=== PATIENT | male | born 1995 | race Caucasian/White ===

== ENCOUNTER → 2017-02-01 | Outpatient (CLI) | payer OTHER ==
[~2017-02-01] MED LIST: CLINDAMYCIN HC300 MG PO; CLINDAMYCIN300 MG PO; HYDROCODONE BIT1 T11 PO; MOTRIN800 MG PO; PEN-VEE K500 MG PO; PERCOCET 325 MG1 TA2 PO
== END | disposition home or self-care (01) ==
LOC: RAD 16:40
DX: R76.11 Nonspecific reaction to tuberculin skin test without active tuberculosis (principal); I10 Essential (primary) hypertension; R61 Generalized hyperhidrosis; R63.4 Abnormal weight loss; F17.200 Nicotine dependence, unspecified, uncomplicated

== ENCOUNTER 2019-02-09 13:24 | Emergency (ER) | payer OTHER ==
[~2019-02-09] VITALS: Wt 108.9 kg
[2019-02-09 14:10] LABS: BILIRUBIN NEGATIVE (NEGATIVE); BLOOD 1+ (NEGATIVE); CLARITY CLEAR (CLEAR); COLOR YELLOW (YELLOW); GLUCOSE NEGATIVE (NEGATIVE); KETONE NEGATIVE (NEGATIVE); LEUKO ESTERASE NEGATIVE (NEGATIVE); NITRITE NEGATIVE (NEGATIVE); PH 8.5 (5.0-9.0); SPECIFIC GRAVITY 1.015 (1.005-1.030); UROBILINOGEN 0.2 E.U./dl (0.2-1.0)
[2019-02-09 14:21] LABS: BACTERIA 2+
[2019-02-09 14:21] LABS: BASO % 0.8 % (0.0-1.0); EOS # 0.1 10*3/uL (0.0-0.4); HEMATOCRIT 44.7 % (42.0-52.0); HEMOGLOBIN 14.7 g/dl (14.0-18.0); LYMPH # 1.1 10*3/uL (1.3-4.4); LYMPH % 21.5 % (27.0-41.0); MEAN CELL VOLUME 85.5 fl (80.0-94.0); MEAN CORPUSCULAR HGB 28.1 pg (27.0-31.0); MEAN CORPUSCULAR HGB CONC 32.9 g/dl (33.0-37.0); MEAN PLATELET VOLUME 9.9 fl (9.6-12.3); MONO # 0.4 10*3/uL (0.1-1.0); MONO % 7.8 % (3.0-9.0); NEUT # 3.6 10*3/uL (2.3-7.9); NEUT % 68.5 % (47.0-73.0); PLATELET COUNT AUTOMATED 266 10*3/uL (130-400); RED BLOOD COUNT 5.23 10*6/uL (4.50-5.90); RED CELL DISTRI WIDTH 12.4 % (0-14.5); WHITE BLOOD COUNT 5.3 10*3/uL (4.8-10.8)
[2019-02-09 14:37] LABS: ALBUMIN 3.7 gm/dl (3.1-4.5); ALKALINE PHOSPHATASE 43 U/L (45-117); BUN 10 mg/dl (7-24); CHLORIDE 109 mmol/L (98-107); CREATININE 0.75 mg/dL (0.70-1.30); LIPASE 178 U/L (73-393); POTASSIUM 3.9 mmol/L (3.5-5.1); SGOT/AST 4 IU/L (3-35); SGPT/ALT 27 U/L (12-78); SODIUM 140 mmol/L (136-145); TOTAL PROTEIN 6.5 gm/dL (6.4-8.2)
[2019-02-09] MEDS ORDERED: FLOMAX0.4 MG PO (16:01)
[2019-02-09] MEDS ORDERED: SEPTDS PO (16:01)
[2019-02-09] MEDS ORDERED: IBUPROFEN600 MG PO (16:01)
== END 2019-02-09 16:25 | disposition home or self-care (01) ==
LOC: ED 13:24
PROVIDERS: Physician Assistant
DX: N23 Unspecified renal colic (principal)

== ENCOUNTER 2019-10-03 12:34 | Emergency (ER) | payer SELFPAY ==
[~2019-10-03] VITALS: Ht 182.8 cm; Wt 104.3 kg
[~2019-10-03 12:34] MED LIST changes: +FLOMAX0.4 MG PO; +IBUPROFEN600 MG PO; +SEPTDS PO
[2019-10-03 13:06] LABS: BASO # 0.1 10*3/uL (0.0-0.1); BASO % 1.2 % (0.0-1.0); EOS # 0.1 10*3/uL (0.0-0.4); EOS % 2.4 % (1.0-4.0); HEMATOCRIT 47.1 % (42.0-52.0); LYMPH # 1.8 10*3/uL (1.3-4.4); LYMPH % 30.7 % (27.0-41.0); MEAN CELL VOLUME 84.9 fl (80.0-94.0); MEAN CORPUSCULAR HGB 28.1 pg (27.0-31.0); MEAN CORPUSCULAR HGB CONC 33.1 g/dl (33.0-37.0); MEAN PLATELET VOLUME 9.7 fl (9.6-12.3); MONO # 0.6 10*3/uL (0.1-1.0); NEUT # 3.2 10*3/uL (2.3-7.9); NEUT % 55.5 % (47.0-73.0); PLATELET COUNT AUTOMATED 291 10*3/uL (130-400); RED BLOOD COUNT 5.55 10*6/uL (4.50-5.90); RED CELL DISTRI WIDTH 12.7 % (0-14.5); WHITE BLOOD COUNT 5.8 10*3/uL (4.8-10.8)
[2019-10-03 13:20] LABS: ALBUMIN 4.2 gm/dl (3.1-4.5); ALKALINE PHOSPHATASE 59 U/L (45-117); BUN 13 mg/dl (7-24); CHLORIDE 108 mmol/L (98-107); CREATININE 0.76 mg/dL (0.70-1.30); POTASSIUM 3.8 mmol/L (3.5-5.1); SGOT/AST 13 IU/L (3-35); SGPT/ALT 44 U/L (12-78); SODIUM 137 mmol/L (136-145); TOTAL PROTEIN 7.7 gm/dL (6.4-8.2)
[2019-10-03 16:19] LABS: BACTERIA 1+; BILIRUBIN NEGATIVE (NEGATIVE); BLOOD 1+ (NEGATIVE); CLARITY CLEAR (CLEAR); COLOR YELLOW (YELLOW); GLUCOSE NEGATIVE (NEGATIVE); KETONE NEGATIVE (NEGATIVE); LEUKO ESTERASE NEGATIVE (NEGATIVE); MUCOUS 2+; NITRITE NEGATIVE (NEGATIVE); RBC 16-20 rbc/hpf (0-2); UROBILINOGEN 0.2 E.U./dl (0.2-1.0)
[2019-10-03] MEDS ORDERED: NAPROSYN500 MG PO (17:04)
[2019-10-03] MEDS ORDERED: ZOFRAN4 MG PO (17:04)
[2019-10-03] MEDS ORDERED: NORCO 5-325 TA1 EACH PO (17:04)
[2019-10-03] MEDS ORDERED: FLOMAX0.4 MG PO (17:04)
== END 2019-10-03 16:48 | disposition home or self-care (01) ==
LOC: ED 12:34
PROVIDERS: Nurse Practitioner Family
DX: N20.1 Calculus of ureter (principal); F17.200 Nicotine dependence, unspecified, uncomplicated

== ENCOUNTER 2022-01-13 21:09 | Emergency (ER) | payer SELFPAY ==
[~2022-01-13] VITALS: Wt 127.0 kg
[~2022-01-13 21:09] MED LIST changes: +NAPROSYN500 MG PO; +NORCO 5-325 TA1 EACH PO; +ZOFRAN4 MG PO
[2022-01-13 21:28] LABS: BASO # 0.1 10*3/uL (0.0-0.1); BASO % 1.1 % (0.0-1.0); EOS # 0.3 10*3/uL (0.0-0.4); LYMPH # 2.2 10*3/uL (1.3-4.4); LYMPH % 34.8 % (27.0-41.0); MEAN CORPUSCULAR HGB 27.4 pg (27.0-31.0); MEAN CORPUSCULAR HGB CONC 33.8 g/dl (33.0-37.0); MEAN PLATELET VOLUME 9.6 fl (9.6-12.3); MONO # 0.7 10*3/uL (0.1-1.0); MONO % 11.3 % (3.0-9.0); NEUT % 48.3 % (47.0-73.0); PLATELET COUNT AUTOMATED 283 10*3/uL (130-400); RED CELL DISTRI WIDTH 12.5 % (0-14.5); WHITE BLOOD COUNT 6.3 10*3/uL (4.8-10.8)
[2022-01-13 21:45] LABS: ALKALINE PHOSPHATASE 68 U/L (45-117); BUN 12 mg/dl (7-24); CHLORIDE 109 mmol/L (98-107); CREATININE 0.92 mg/dL (0.70-1.30); LIPASE 1584 U/L (73-393); POTASSIUM 4.2 mmol/L (3.5-5.1); SGOT/AST 10 IU/L (3-35); SGPT/ALT 53 U/L (12-78); SODIUM 141 mmol/L (136-145); TOTAL PROTEIN 7.4 gm/dL (6.4-8.2)
[2022-01-13] MEDS ORDERED: FLOMAX0.4 MG PO (22:37)
[2022-01-13] MEDS ORDERED: ONDANSETRON4 MG SL (22:37)
[2022-01-13] MEDS ORDERED: HYDROCODONE-AC1 EAC1 PO (22:37)
== END 2022-01-13 22:45 | disposition home or self-care (01) ==
LOC: ED 21:09
PROVIDERS: Emergency Medicine
DX: N13.2 Hydronephrosis with renal and ureteral calculous obstruction (principal)

== ENCOUNTER 2024-03-19 13:58 | Emergency (ER) | payer OTHER ==
[~2024-03-19] VITALS: Ht 182.8 cm; Wt 86.2 kg
[~2024-03-19 13:58] MED LIST changes: +HYDROCODONE-AC1 EAC1 PO; +ONDANSETRON4 MG SL
[2024-03-19] MEDS ORDERED: NAPROSYN500 MG PO (15:18)
[2024-03-19] MEDS ORDERED: HYDROCODONE-AC1 EAC1 PO (15:18)
[2024-03-19] MEDS ORDERED: CLINDAMYCIN HC300 MG PO (15:18)
[2024-03-19] MEDS ORDERED: Acetaminophen/Hydrocodone 5 MG/325 MG TABLET PO ONE (15:25)
[2024-03-19] MEDS ORDERED: Ketorolac Tromethamine 30 MG/ML VIAL IM ONE (15:25)
[2024-03-19] MEDS ORDERED: CLINDAMYCIN HCL 300 MG CAPSULE PO ONE (15:25)
== END 2024-03-19 15:30 | disposition home or self-care (01) ==
LOC: ED 13:58
DX: K04.7 Periapical abscess without sinus (principal); K03.81 Cracked tooth; Z87.442 Personal history of urinary calculi

== ENCOUNTER 2024-03-26 16:43 | Emergency (ER) | payer OTHER ==
[~2024-03-26] VITALS: Ht 182.8 cm; Wt 86.2 kg
[2024-03-26] MEDS ORDERED: MELOXICAM15 MG PO (17:08)
[2024-03-26] MEDS ORDERED: AMOX-CLAV 875-1 EACH PO (17:08)
[2024-03-26] MEDS ORDERED: [UNRECOGNIZED DRUG - OTHER] PO SCH (17:10)
== END 2024-03-26 17:54 | disposition home or self-care (01) ==
LOC: ED 16:43
DX: K04.7 Periapical abscess without sinus (principal); Z79.2 Long term (current) use of antibiotics; Z79.899 Other long term (current) drug therapy

== ENCOUNTER 2024-04-11 20:40 | Emergency (ER) | payer OTHER ==
[~2024-04-11] VITALS: Ht 182.8 cm; Wt 86.2 kg
[~2024-04-11 20:40] MED LIST changes: +AMOX-CLAV 875-1 EACH PO; +MELOXICAM15 MG PO
[2024-04-11 21:31] LABS: BASO # 0.1 10*3/uL (0.0-0.1); BASO % 0.7 % (0.0-1.0); EOS # 0.1 10*3/uL (0.0-0.4); EOS % 1.6 % (1.0-4.0); HEMATOCRIT 43.5 % (42.0-52.0); MEAN CELL VOLUME 83.2 fl (80.0-94.0); MEAN CORPUSCULAR HGB 27.5 pg (27.0-31.0); MEAN CORPUSCULAR HGB CONC 33.1 g/dl (33.0-37.0); MEAN PLATELET VOLUME 9.4 fl (9.6-12.3); MONO # 0.5 10*3/uL (0.1-1.0); MONO % 5.4 % (3.0-9.0); NEUT # 5.2 10*3/uL (2.3-7.9); NEUT % 62.8 % (47.0-73.0); PLATELET COUNT AUTOMATED 281 10*3/uL (130-400); RED BLOOD COUNT 5.23 10*6/uL (4.50-5.90); RED CELL DISTRI WIDTH 12.5 % (0-14.5); WHITE BLOOD COUNT 8.3 10*3/uL (4.8-10.8)
[2024-04-11] MEDS ORDERED: PENICILLIN V POTASSIUM 500 MG TAB PO ONE (22:25)
[2024-04-11] MEDS ORDERED: Ondansetron Hydrochloride 4 MG TAB SL ONE (22:25)
[2024-04-11] MEDS ORDERED: Acetaminophen/Hydrocodone 5 MG/325 MG TABLET PO ONE (22:25)
[2024-04-11] MEDS ORDERED: PENICILLIN VK500 MG PO (23:44)
== END 2024-04-11 23:49 | disposition home or self-care (01) ==
LOC: ED 20:40
PROVIDERS: Internal Medicine
DX: K04.7 Periapical abscess without sinus (principal); K02.9 Dental caries, unspecified; F90.9 Attention-deficit hyperactivity disorder, unspecified type

== ENCOUNTER 2024-04-21 19:20 | Emergency (ER) | payer OTHER ==
[~2024-04-21] VITALS: Ht 182.8 cm; Wt 86.2 kg
[~2024-04-21 19:20] MED LIST changes: +PENICILLIN VK500 MG PO
[2024-04-21] MEDS ORDERED: PENICILLIN V POTASSIUM 500 MG TAB PO ONE (19:50)
[2024-04-21] MEDS ORDERED: Acetaminophen/Hydrocodone 5 MG/325 MG TABLET PO ONE ×2 (19:50→20:40)
[2024-04-21] MEDS ORDERED: Ondansetron Hydrochloride 4 MG TAB SL ONE (19:50)
== END 2024-04-21 20:31 | disposition home or self-care (01) ==
LOC: ED 19:20
DX: K02.9 Dental caries, unspecified (principal); H92.02 Otalgia, left ear; F90.9 Attention-deficit hyperactivity disorder, unspecified type